=== PATIENT | male | born 1960 | race African-American/Black ===

== ENCOUNTER 2018-04-05 04:17 | Inpatient (IN) | payer OTHER ==
[2018-04-05] VITALS (8 sets, daily range): BP systolic 137–174; BP diastolic 84–96
[~2018-04-05] VITALS: Ht 182.9 cm; Wt 106.6 kg
--- NOTE | ~2018-04-05 | HC ---
[facility] [place] [address] CONSULTATION Name: JAMESKATHIE Bala Room #: 363-P [facility] IN ..#: [id number] Admission: 04/05/18 Attend Phys: Abdelrahman Lala Discharge: Date of : 58 Report #: [id number] THIS REPORT FOR: //name// CC: Abdelrahman Almendarez DATE OF SERVICE: 04/05/2018 HISTORY OF PRESENT ILLNESS: The patient is a 57-year-old male who has a history of CVA and recent aspiration pneumonia, actually was just discharged from the hospital on 04/03/2018 back to his half-way. He was discharged on b.i.d. PPI therapy. He does have a history of peptic ulcer disease. He was also on Plavix for history of stroke, other medications as well as antibiotics. Apparently, he had an episode of coffee-ground emesis at the half-way last night and was reevaluated and admitted. He has a family member present today who is giving most of the history. He is able to give some history. She states that he has been evaluated by speech pathology in the past and his diet is supposed to be thickened diet in general. An NG was placed last night. Currently, he has a small amount of coffee-ground material within the NG. The patient denies any abdominal pain at this time. He would like to eat. He is not on any oxygen currently. He is currently afebrile. His hemoglobin today is 8.7, which is actually better than last check on 04/02/2018, which was 8.6. His hemoglobin on admission on 03/24/2018 was 9.3. He dropped to 7.0 on 03/26/2018. GI was following during his last hospitalization. Apparently, the patient had an EGD and colonoscopy done at [facility] in 10/2017. No evidence of acute GI blood loss at that time. He also has been followed by Dr. Steel with GI at [facility]. He did not undergo an endoscopy during last hospitalization. His chest x-ray today shows findings may reflect CHF with bilateral lower lung interstitial pulmonary edema, bilateral interstitial pneumonitis with strand-like atelectasis in the left mid lung also a consideration. A CT scan of the abdomen and pelvis was also performed on admission. NG was already placed at that time, which stomach was decompressed. Large amount of stool present throughout the colon suggesting possible constipation. No evidence of small-bowel obstruction, marked distention of the urinary bladder was noted. Findings suggesting of a diffuse subcutaneous edema also noted. The patient also has a history of chronic renal insufficiency with a creatinine right now at 2.6. He denies any chest pain currently or shortness of breath. There are no fevers or chills. PAST MEDICAL HISTORY: History of aspiration and pneumonia, recent hospitalization with discharge as above, history of chronic anemia, previous CVA, chronic renal insufficiency, history of peptic ulcer disease, COPD, diabetes, hypothyroidism, benign prostatic hypertrophy, hypertension, depression. [address] [address] CONSULTATION Name: KATHIE RAMIREZ Room #: 363-P [facility] IN M.R.#: [id number] Admission: 04/05/18 Attend Phys: Abdelrahman Lala Discharge: Date of : 58 Report #: [id number] ALLERGIES: No known drug allergies. REVIEW OF SYSTEMS: As per HPI. FAMILY HISTORY: Negative for colon cancer. SOCIAL HISTORY: Apparently, he continues to smoke cigars. There is no history of alcohol use. MEDICATIONS ON ADMISSION: Augmentin, amlodipine, Lasix, prednisone, Lipitor, vitamin D, Celexa, Plavix which has now been held 75 mg, Coreg, bisacodyl, iron, Flomax, Neurontin, hydralazine, Synthroid, NovoLog, Zofran p.r.n., MiraLax p.r.n., Protonix 40 mg b.i.d., albuterol, Symbicort. PHYSICAL EXAMINATION: VITAL SIGNS: Temperature is 98.1, pulse 66, blood pressure 137/87, respiratory rate is 20, O2 sat is 95% on room air. GENERAL: He is awake. He is answering some simple questions. He is in no acute distress. HEENT: Sclerae nonicteric. Oropharynx is clear. NG is in place. Again, there is some bilious type material. There was also some dark flecks suggesting coffee-ground type material within the NG, but this is only a small amount. He is attached to suction at this time. CARDIOVASCULAR: Regular rate. CHEST: With decreased breath sounds on the right side anteriorly. ABDOMEN: Soft. He is nontender, nondistended, normoactive bowel sounds. EXTREMITIES: Trace edema in the lower extremities bilaterally. LABORATORY DATA: Sodium 141, potassium 3.1, chloride 105, bicarbonate 28, BUN 51, creatinine 2.6, glucose 131. AST is 15, lipase 79, total bilirubin 0.3, calcium 8.4, alk phos 53, ALT 17, total protein 5.9, albumin 2.3. WBC is 15.5, hemoglobin 8.7, MCV 71.6, platelet count is 333. The patient was given 2 units of packed cells during his last hospitalization on 03/25/2018 and 03/26/2018. ASSESSMENT AND PLAN: 1. Anemia, recent history of coffee ground type emesis. The patient with a history of peptic ulcer disease, had already been on Protonix b.i.d. but was also on Plavix, this has now been held. His hemoglobin is actually stable at this time. It is improved from before discharge. I had a long discussion with the patient and his family members today. I would recommend proceeding with an upper endoscopy when his pulmonary function has improved. His chest x-ray continues to show some effusion as well as infiltrates suggesting a possible ongoing pneumonia. Agree with Protonix drip, which has now been started. We will continue to monitor hemoglobin closely. When the patient is more stable from a pulmonary standpoint, we will proceed with upper endoscopy. Would continue NG suction today and IV fluids. [facility] [address] [place] [address] CONSULTATION Name: JAMESKATHIE Room #: 363-P ADM IN .R.#: [id number] Admission: 04/05/18 Attend Phys: Abdelrahman Lala Discharge: Date of : 58 Report #: [id number] 2. History of chronic constipation. Later, we will restart MiraLax when the patient is taking p.o. Thank you for allowing me to participate in his care. <ELECTRONICALLY SIGNED> By: Tony Foster MD 04/06/18 1447 1039 1735 Tony Foster MD /nt
--- NOTE | ~2018-04-05 | PATH ---
[facility] [address] [place] [address] PATHOLOGY RPT PROCEDURE Name: JOEL RAMIREZLEONARDO Mckenna Room #: 363-P [facility] IN M.R.#: [id number] Admission: 04/05/18 Date of : 58 Discharge: 04/07/18 Report #: [id number] Path Case #: [id number] [facility] Accession Number: [id number] . 01 Material submitted: . BX ANTRUM . 01 Clinical history: . GI bleed Esophagitis, duodenitis, gastritis, hiatal hernia Rule out H. pylori . 02 Diagnosis: Gastric mucosa, antrum, rule out H. pylori, endoscopic biopsy: - Moderate reactive gastropathy. - Negative for intestinal metaplasia or atrophy. - Negative for Helicobacter pylori (properly controlled immunohistochemical performed). (IUV:pit 04/08/2018) QTP/04/08/2018 . 02 Electronically signed: . Linda Valladares MD, Pathologist NPI- [id number] . 01 Gross description: . The specimen is received in formalin, labeled "Kathie Ramirez, BX antrum" and consists of 2 fragments of soft daniels tissue measuring 0.6 x 0.3 x 0.1 cm and 0.4 x 0.2 x 0.1 cm. They are entirely submitted in A1. (SDY; 04/07/2018) SYU/SYU . 02 Microscopic: . . . 02 Pathologist provided ICD-10: K31.9 . 02 CPT . 698376, [id number] Performed at: [address], [place] [id number] MD Marcus Duff MD Phone: [phone] Performed at: [address] [id number] [address] [address] PATHOLOGY RPT PROCEDURE Name: KATHIE RAMIREZ Room #: 363-P [facility] IN M.R.#: [id number] Admission: 04/05/18 Date of : 58 Discharge: 04/07/18 Report #: [id number] Path Case #: [id number] MD Linda Valladares MD Phone: [phone]
--- NOTE | ~2018-04-05 | EKG ---
[place] [address] [facility] [place] [place] [address] ELECTROCARDIOGRAM REPORT Name: KATHIE RAMIREZ Room #: 363-P ADM IN M.R.#: [id number] Admission: 04/05/18 Attend Phys: Abdelrahman Lala Discharge: Date of : 58 Report #: [id number] THIS REPORT FOR: //name// [facility] ED Test Date: 2018-04-05 Test Time: 04:34:10 Pat Name: KATHIE RAMIREZ Department: Room: [facility] Gender: M [employer]oth [employer] Supervisor: carmel : 1960 Requested By: Wily French Order Number: [id number] MD: Clyde Smith Measurements Intervals [place] Rate: 72 P: -5 DC: 158 QRS: -24 QRSD: 99 T: 100 QT: 393 QTc: 431 Interpretive Statements Sinus rhythm RSR' in V1 or V2, probably normal variant Nonspecific T abnormalities, lateral leads Compared to ECG 04/01/2018 19:51:57 RSR' in V1 or V2 now present No significant change was found Electronically Signed On 04-05-2018 13:08:43 CDT by Clyde Smith [email or web address] <ELECTRONICALLY SIGNED> By: Clyde Smith MD, [facility] 04/05/18 1308 0434 0434 Clyde Smith MD, [facility] /EPI
[~2018-04-05 04:17] MED LIST: AMLODIPINE BESY10 MG PO; AUGMENTIN 500-1 EACH PO; CARVEDILOL12.5 MG PO; CELEXA20 MG PO; DEMADEX20 MG PO; DUCODYL5 MG PO; FLOMAX0.4 MG PO; HYDRALAZINE 10M10 MG PO; IRON325 PO; KETOCONAZOLE15 GM TOP; LASIX 40 MG TAB40 M1 PO; LIPITOR80 MG PO; MIRALAX17 GM PO; NEURONTIN 300300 M1 PO; NOVOLOG100 UNIT/1 SUBQ; PLAVIX 75 MG TA75 M1 PO; PREDNISONE 10 M10 MG PO; PRINIVIL40 MG PO; PROTONIX40 M1 PO; SYMBICORT160 MCG/4. INH; SYNTHROID137 MC1 PO; TRESIBA FL200 UNIT/1 SUBQ; VENTOLIN HFA 1818 GM INH; VITAMIN D2000 UNIT PO; ZOFRAN ODT4 MG PO
[2018-04-05 04:33] LABS: ABSOLUTE NEUTROPHILS 12.3 thou/uL (1.4-8.2); BASOPHILS 0.7 % (0.0-2.0); EOSINOPHILS 0.8 % (0.0-3.0); HEMOGLOBIN 8.7 gm/dL (14.0-18.0); LYMPHOCYTES 12.7 % (24.0-44.0); MCH 24.9 pg (26.0-34.0); MCHC 34.7 g/dL (28.0-37.0); MCV 71.6 fL (80.0-100.0); MONOCYTES 6.5 % (1.0-8.0); PLATELET COUNT 333 thou/uL (150-400); POLYS 79.3 % (36.0-66.0); RBC 3.48 mil/uL (4.50-6.00); RDW 22.6 % (10.5-14.5); WBC 15.5 thou/uL (4.0-11.0)
[2018-04-05 04:43] LABS: CALCIUM 8.4 mg/dL (8.5-10.1); CREATININE 2.6 mg/dL (0.7-1.3); POTASSIUM 3.1 mmol/L (3.5-5.1)
[2018-04-05 04:48] LABS: ALBUMIN 2.3 g/dL (3.4-5.0); APTT 26.3 Seconds (24.5-32.8); INR 1.1; PROTIME 11.1 Seconds (9.3-11.4); TOTAL BILIRUBIN 0.3 mg/dL (<0.1-1.0); TOTAL PROTEIN 5.9 g/dL (6.4-8.2)
[2018-04-05 05:39] LABS: ANISOCYTOSIS 2+
[2018-04-05 05:40] LABS: HYPOCHROMASIA 1+; MICROCYTES 2+
[2018-04-06 04:56] VITALS: BP 172/98
[2018-04-06 07:47] VITALS: BP 175/98
[2018-04-06 08:01] LABS: HEMATOCRIT 22.8 % (42.0-52.0); HEMOGLOBIN 7.8 gm/dL (14.0-18.0); MCH 24.7 pg (26.0-34.0); MCV 72.6 fL (80.0-100.0); RBC 3.14 mil/uL (4.50-6.00); RDW 22.3 % (10.5-14.5); WBC 11.6 thou/uL (4.0-11.0)
[2018-04-06 08:13] LABS: CALCIUM 8.4 mg/dL (8.5-10.1); CREATININE 2.1 mg/dL (0.7-1.3); MAGNESIUM 1.9 mg/dL (1.8-2.4); POTASSIUM 3.1 mmol/L (3.5-5.1)
[2018-04-06 11:51] VITALS: BP 176/115
[2018-04-06 16:09] VITALS: BP 166/93
[2018-04-06 20:07] VITALS: BP 146/87
[2018-04-07 04:59] VITALS: BP 159/83
[2018-04-07 06:44] LABS: HEMATOCRIT 22.5 % (42.0-52.0); HEMOGLOBIN 7.8 gm/dL (14.0-18.0); MCH 25.3 pg (26.0-34.0); MCHC 34.7 g/dL (28.0-37.0); MCV 72.9 fL (80.0-100.0); RBC 3.09 mil/uL (4.50-6.00); RDW 22.1 % (10.5-14.5); WBC 10.1 thou/uL (4.0-11.0)
[2018-04-07 06:54] LABS: CALCIUM 7.8 mg/dL (8.5-10.1); CREATININE 2.1 mg/dL (0.7-1.3); MAGNESIUM 1.7 mg/dL (1.8-2.4); POTASSIUM 3.3 mmol/L (3.5-5.1)
[2018-04-07 07:48] VITALS: BP 181/102
[2018-04-07 11:34] VITALS: BP 186/101
[2018-04-07 16:07] VITALS: BP 158/94
== END 2018-04-07 18:32 | DRG 380 ==
LOC: ER 04:17 → EROBS 05:45 → 3W 07:34
PROVIDERS: Emergency Medicine; Internal Medicine
PROC: 0DB68ZX Excision of Stomach, Via Natural or Artificial Opening Endoscopic, Diagnostic (ICD-10-PCS; principal; 2018-04-07)
DX: K22.11 Ulcer of esophagus with bleeding (principal); J18.9 Pneumonia, unspecified organism; I69.351 Hemiplegia and hemiparesis following cerebral infarction affecting right dominant side; D62 Acute posthemorrhagic anemia; E46 Unspecified protein-calorie malnutrition; K29.71 Gastritis, unspecified, with bleeding; K29.81 Duodenitis with bleeding; K92.0 Hematemesis; K44.9 Diaphragmatic hernia without obstruction or gangrene; N40.0 Benign prostatic hyperplasia without lower urinary tract symptoms; K59.09 Other constipation; E03.9 Hypothyroidism, unspecified; E11.9 Type 2 diabetes mellitus without complications; J44.9 Chronic obstructive pulmonary disease, unspecified; K21.9 Gastro-esophageal reflux disease without esophagitis; I10 Essential (primary) hypertension; I50.9 Heart failure, unspecified; F32.9 Major depressive disorder, single episode, unspecified; D64.9 Anemia, unspecified; N18.9 Chronic kidney disease, unspecified; D72.829 Elevated white blood cell count, unspecified; Z87.11 Personal history of peptic ulcer disease; F17.290 Nicotine dependence, other tobacco product, uncomplicated; Z68.31 Body mass index [BMI] 31.0-31.9, adult; Z79.899 Other long term (current) drug therapy
CPT/HCPCS: 10879; 62110; 62900; 70005